=== PATIENT | female | born 1940 | race Two or more races ===

== ENCOUNTER 2017-08-01 14:31 | Outpatient (CLI) | payer OTHER ==
[~2017-08-01 14:31] MED LIST: NABUMETONE500 MG PO; PERCOCET 5/3251 TAB PO
== END 2017-08-01 16:00 | disposition home or self-care (01) ==
LOC: SONOGRAMA 14:31
DX: N63.32 Unspecified lump in axillary tail of the left breast (principal); N60.11 Diffuse cystic mastopathy of right breast; N60.12 Diffuse cystic mastopathy of left breast

== ENCOUNTER → 2018-09-24 09:36 | Outpatient (CLI) | payer OTHER | END | disposition home or self-care (01) | LOC: NUCLEAR 09:36 | DX: M81.0 Age-related osteoporosis without current pathological fracture (principal) ==

== ENCOUNTER 2018-09-24 11:17 | Outpatient (CLI) | payer OTHER | END 2018-09-24 11:31 | disposition home or self-care (01) | LOC: MAMO-SONO 11:17 | DX: Z12.31 Encounter for screening mammogram for malignant neoplasm of breast (principal); Z87.898 Personal history of other specified conditions; N63.10 Unspecified lump in the right breast, unspecified quadrant; N63.20 Unspecified lump in the left breast, unspecified quadrant ==

== ENCOUNTER 2020-01-06 11:05 | Outpatient (CLI) | payer OTHER | END 2020-01-06 11:12 | disposition home or self-care (01) | LOC: MAMO-SONO 11:05 | PROVIDERS: ATTEND Internal Medicine | DX: Z12.31 Encounter for screening mammogram for malignant neoplasm of breast (principal); N64.59 Other signs and symptoms in breast ==